=== PATIENT | male | born 1970 | race Caucasian/White ===

== ENCOUNTER 2021-03-10 10:07 | Emergency (ER) | payer OTHER ==
[~2021-03-10] VITALS: Ht 180.3 cm; Wt 67.0 kg
[2021-03-10 10:26] VITALS: BP 138/90
--- NOTE | 2021-03-10 13:05 | NUR ---
PATIENT ELOPED PER
== END 2021-03-10 14:11 | disposition left against medical advice (07) ==
LOC: ED 10:28
DX: U07.1 COVID-19 (principal); J06.9 Acute upper respiratory infection, unspecified; R94.31 Abnormal electrocardiogram [ECG] [EKG]
CPT/HCPCS: 71045; 93005; 99285; U0003; U0005